=== PATIENT | female | born 1975 | race Caucasian/White ===

== ENCOUNTER 2016-05-27 08:09 | Day surgery (SDC) | payer SELFPAY ==
[2016-05-25 10:04] VITALS: BMI 24.7
[2016-05-27] MEDS ORDERED: HEPARIN NA (PORCINE) 5,000 UNITS/ML 1ML VIAL ONE (08:45)
[2016-05-27] MEDS ORDERED: EPINEPHrine 1:1,000 1 MG/1 ML - 30ML VIAL (INJECTION) ONE (10:11)
[2016-05-27] MEDS ORDERED: LIDOCAINE HCL 1%, 10 MG/ML (20ML VIAL) ONE ×2 (10:11→10:25)
[2016-05-27] MEDS ORDERED: MIDAZOLAM HCL 2 MG/2 ML SINGLE DOSE VIAL ONE (10:14)
[2016-05-27] MEDS ORDERED: SCOPOLAMINE HYDROBROMIDE 1 PATCH PATCH.TD72 ONE ×2 (10:15→10:43)
[2016-05-27] MEDS ORDERED: SUCCINYLCHOLINE CHLORIDE 200 MG/10 ML VIAL ONE (10:23)
[2016-05-27] MEDS ORDERED: DESFLURANE GAS 240 ML BOTTLE IH ONE (10:25)
[2016-05-27] MEDS ORDERED: HYDROmorphone *PCA* 10MG/50ML DISP.SYRIN PCA SCH (10:45)
[2016-05-27] MEDS ORDERED: PROPOFOL 20 ML ONE (10:55)
[2016-05-27] MEDS ORDERED: DEXAMETHASONE SOD PHOSPHATE 4 MG/1 ML VIAL ONE (10:56)
[2016-05-27] MEDS ORDERED: BUPIVACAINE HCL/PF 2.5 MG/ML - 30 ML VIAL IJ ONE (11:04)
[2016-05-27] MEDS ORDERED: ONDANSETRON 4 MG/2 ML VIAL IVPUSH PRN ×2 (12:17→12:18)
[2016-05-27] MEDS ORDERED: PROMETHAZINE HCL 25 MG/1 ML VIAL IVPUSH PRN (12:18)
[2016-05-27] MEDS ORDERED: PROMETHAZINE HCL 25 MG/1 ML VIAL IVPB PRN (12:19)
[2016-05-27] MEDS ORDERED: HYDROmorphone HCL/PF 1 MG/ML VIAL (FOR PYXIS CHARGING ONLY) ONE (12:39)
[2016-05-27] MEDS ORDERED: SODIUM CHLORIDE 0.9% P/F 10 ML VIAL IJ ONE (12:40)
[2016-05-27] MEDS ORDERED: BUPIVACAINE HCL/PF 0.25% (2.5MG/ML) 10 ML VIAL IJ ONE (13:15)
[2016-05-27] MEDS ORDERED: LIDOCAINE HCL 2% JELLY (5 ML/TUBE) ONE (13:44)
[2016-05-27] MEDS ORDERED: ONDANSETRON 4 MG/2 ML VIAL ONE (14:30)
[2016-05-27] MEDS ORDERED: LACTATED RINGERS SOLUTION 1,000 ML IV SCH (15:15)
[2016-05-27] MEDS: LACTATED RINGERS SOLUTION 1,000 ML IV SCH (15:39)
--- NOTE | 2016-05-27 16:25 | OP ---
DATE OF OPERATION: 05/27/2016 TITLE OF PROCEDURE: Abdominoplasty with bilateral flank liposuction with reduction repair of incarcerated ventral hernia . PREOPERATIVE DIAGNOSIS: Abdominal diastasis with abdominal deformity. 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 ATTENDING SURGEON: Farhad Hatch MD MASTER [employer]OM[employer] GLASS TECHNICIAN: There were no assistants. ANESTHESIA: General endotracheal anesthesia. A total of 20 mL of 0.25% Marcaine plain was given throughout the fascia prior to closure. DESCRIPTION OF PROCEDURE: The patient is marked in a standing position. She is awake, aware of incisions and resulting scars. The patient was counseled on all risks, benefits, and alternatives of the procedure, understands, and agrees to proceed. Sequential compression stockings were applied along with JANIE hose preoperatively. A gram of Ancef was given preoperatively. She was brought to the operating room and placed in a supine potion. At which point, she was prepped and draped in standard surgical fashion after position was carefully checked by surgical and anesthesia teams, and anesthesia was induced. The time-out was called. Patient, procedure, incision sites were verified. At this point, the inferior border of the skin resection pattern was incised and dissection carried down to the level of the abdominal wall fascia. Dissection was then carried along the abdominal wall fascia to the level of the umbilicus. The umbilicus was then circumcised and developed on a fibrofatty stalk, and the infraumbilical flap was split, and the flap was then elevated to the level of the xiphoid process in the midline and costal margins bilaterally. Perforating blood vessels were cauterized and suture ligated as needed. A midline ventral hernia was found. It was incarcerated. Its contents were dissected, and the defect was cleaned and identified. A repair was performed with a single [id number] 1 Prolene suture repairing the incidental hernia, which was supraumbilical. At the completion of this, a midline plication was performed from the xiphoid to the umbilicus followed by separate plication from the umbilicus to the pubis. This was done in two layers, first with a series of interrupted buried [id number] 1 Prolene suture followed by a running locking 1 Prolene suture on both the supraumbilical and infraumbilical lines. Even tension was appreciated throughout the abdomen. Hemostasis was meticulously achieved. The abdomen was copiously irrigated. The patient was then brought to a flexed position, roughly 20 degrees, where the abdominoplasty flap was transposed, excess skin and fat were resected, skin was tailor-tacked for closure. Note the skin in a tailor-tacked position. The umbilicus was then translocated through a Star Trek pattern incision in the abdominoplasty flap of the inferior 6 o'clock flap being inset into a 6 o'clock notch cut into the umbilicus. The umbilicus was then set with a series of interrupted buried deep dermal 3-0 Monocryl suture followed by a series of running and interrupted 5-0 nylon suture. Size 10 flat DEYVI drains were brought out through lateral stab wound incisions. The right drain was on the superior recess of the wound, and the left side drain on the lower recess of the wound. Prior to closure, the flanks are infiltrated with wetting solution. Wetting solution is a liter of normal saline with 20 mL of 1% lidocaine plain with 1:1000 epinephrine, 1 mL ampule within the bag of saline. A total of 600 mL was infiltrated, 300 mL per side. The closure was commenced on the incision while 15 minutes was awaited for hemostatic effect of the wetting solution. The closure was performed with a series of interrupted deep buried Scarpas layer, 2-0 Vicryl suture, followed by a series of interrupted buried deep dermal 3-0 Monocryl suture. At this point, liposuction was then performed with a 4-mm power-assisted cannula. A total of 200 mL of lipoaspirate was removed from either flank. The closure was then finalized with a running 3-0 Monocryl suture followed by a series of interrupted 5-0 nylon where needed. Wounds were dressed with Steri-Strips, Bacitracin Xeroform within the umbilicus. All the tissues were pink and viable at the end of the procedure. Patient was then dressed with ABDs, 4x4 gauze, and an abdominal binder. Patient was awoken from anesthesia without bucking, transferred to her hospital bed in a flexed position having tolerated the procedure well. Tomi [id number]
[2016-05-27] MEDS: ONDANSETRON 4 MG/2 ML VIAL IVPB PRN (17:39)
[2016-05-27] MEDS: morphine CARPU-JECT 10 MG/1 ML DISP.SYRIN IVPUSH PRN ×2 (18:53→23:40)
[2016-05-27] MEDS: CEFAZOLIN 1 GM/D5W 50 ML IVPB SCH (20:36)
[2016-05-28] MEDS: CEFAZOLIN 1 GM/D5W 50 ML IVPB SCH ×2 (03:11→09:42)
[2016-05-28] MEDS ORDERED: HEPARIN NA (PORCINE) 5,000 UNITS/ML 1ML VIAL SQ SCH (06:00)
[2016-05-28 06:11] VITALS: TEMP 98.7
[2016-05-28] MEDS: morphine CARPU-JECT 10 MG/1 ML DISP.SYRIN IVPUSH PRN ×2 (06:27→10:35)
--- NOTE | 2016-05-28 09:41 | PN ---
Progress Note (short form) - Note Progress Note: All tissues viable, no collections VSS AF DEYVI's working and thin Pain well controlled Using PO pain meds Ambulating Abby PO received sq heparin ok for d/c home with DEYVI instructions and f/u fri
[2016-05-28] MEDS: ONDANSETRON 4 MG/2 ML VIAL IVPB PRN (10:34)
[2016-05-28] MEDS: LACTATED RINGERS SOLUTION 1,000 ML IV SCH (11:32)
[2016-05-28 12:30] VITALS: BP 110/60; PULSE 80
--- NOTE | 2016-05-31 14:28 | PATH ---
Surgical Pathology Report Patient Name: AUTUMN MCNAIR [facility]. Rec. #: [id number] /Age/Gender: 1975 (Age: 40) / F Account: [id number] Location: [facility] Taken: 05/27/2016 Received: 05/27/2016 Reported: 05/31/2016 Physicians: Farhad Hatch Specimen(s) Received A: HERNIA CONTENT B: ABDOMINAL TISSUE Clinical History Plastic Final Diagnosis A. SOFT TISSUE, HERNIA CONTENTS, EXCISION: BENIGN ADIPOSE TISSUE WITH ATTACHED FIBROMEMBRANOUS TISSUE. B. SKIN AND SOFT TISSUE, ABDOMINAL, ABDOMINOPLASTY: UNREMARKABLE SKIN AND SUBCUTANEOUS ADIPOSE TISSUE. Electronically Signed Lukas Thompson M.D. Gross Description A. Received in formalin labeled "hernia content," are 2 ryan-yellow, irregular portions of soft tissue measuring 1.5 x 1.0 x 0.8 cm and 1.5 x 1.4 x 0.7 cm. Sectioning reveals yellow lobulated adipose tissue. Discharge Planner sections are submitted in one cassette. B. Received in formalin labeled "abdominal tissue and fat," is a 559 g, 30.0 x 15.5 x 2.2 cm aggregate of 2 ryan, triangular portions of skin with underlying soft tissue. The epidermal surfaces are unremarkable. Sectioning reveals yellow, lobulated adipose tissue. No lesions are identified. No sections are submitted, gross only. 05/30/2016 [facility]05/30/2016
== END 2016-05-28 12:20 | disposition home or self-care (01) ==
LOC: FASU 08:09 → FM/S 15:03 → FASU 05-28 12:20
PROVIDERS: ATTEND Plastic Surgery
PROC: 0J080ZZ Alteration of Abdomen Subcutaneous Tissue and Fascia, Open Approach (ICD-10-PCS; principal; 2016-05-27 11:25)
PROC: 0WQF0ZZ Repair Abdominal Wall, Open Approach (ICD-10-PCS; 2016-05-27 11:25)
DX: Z41.1 Encounter for cosmetic surgery (principal); M62.08 Separation of muscle (nontraumatic), other site; K43.6 Other and unspecified ventral hernia with obstruction, without gangrene
CPT/HCPCS: 84703; 88300-TC; 88302-TC; 94760; J1644